=== PATIENT | male | born 2000 | race Caucasian/White ===

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

== ENCOUNTER 2018-02-25 11:14 | Emergency (ER) | payer OTHER ==
[2018-02-25] MEDS: BACLOFEN 10 MG TAB PO (12:15)
[2018-02-25] MEDS: NORCO, ANEXSIA 5/325MG TABLET (HYDROcodone/ACETAMINOPHEN) PO (12:15)
== END 2018-02-25 13:56 | disposition home or self-care (01) ==
LOC: M ED 11:14
DX: S39.002A Unspecified injury of muscle, fascia and tendon of lower back, initial encounter (principal); W11.XXXA Fall on and from ladder, initial encounter; Y92.59 Other trade areas as the place of occurrence of the external cause; Y99.0 Civilian activity done for income or pay; F41.9 Anxiety disorder, unspecified; F33.9 Major depressive disorder, recurrent, unspecified; R45.4 Irritability and anger; Z87.828 Personal history of other (healed) physical injury and trauma
CPT/HCPCS: 72072

== ENCOUNTER → 2018-05-24 | Outpatient (REF) | payer OTHER ==
[2018-05-24 14:59] LABS: BASO % 0.7 % (0.0-1.0); EOS # 0.4 10^3/uL (0.0-0.50); EOS % 7.2 % (0.0-3.0); HEMATOCRIT 41.5 % (42.0-52.0); HEMOGLOBIN 14.5 g/dl (13.5-17.5); IMMATURE GRANULOCYTE % 0.3 % (0-3.0); LYMPH % 33.5 % (24.0-44.0); MEAN CORPUSCULAR HEMOGLOBIN 30.8 pg (27.0-33.0); MEAN CORPUSCULAR HGB CONC 34.9 g/dl (32.0-36.5); MEAN CORPUSCULAR VOLUME 88.1 fl (80.0-96.0); MONO # 0.5 10^3/uL (0.0-0.8); MONO % 7.9 % (0.0-5.0); NEUTROPHILS % 50.4 % (36.0-66.0); PLATELET COUNT, AUTOMATED 305 10^3/uL (150-450); RED BLOOD COUNT 4.71 10^6/uL (4.30-6.10); RED CELL DISTRIBUTION WIDTH 13.1 % (11.5-14.5)
[2018-05-24 15:12] LABS: ALBUMIN 4.4 GM/DL (3.2-5.2); ALBUMIN/GLOBULIN RATIO 1.42 (1.00-1.93); ALKALINE PHOSPHATASE 108 U/L (45-117); ALT/SGPT 25 U/L (12-78); ANION GAP 7 MEQ/L (8-16); AST/SGOT 16 U/L (7-37); BILIRUBIN,TOTAL 1.4 MG/DL (0.2-1.0); BLOOD UREA NITROGEN 11 MG/DL (7-18); CALCIUM LEVEL 9.6 MG/DL (8.5-10.1); CARBON DIOXIDE LEVEL 27 MEQ/L (21-32); CHLORIDE LEVEL 109 MEQ/L (98-107); CREATININE FOR GFR 0.98 MG/DL (0.70-1.30); GLUCOSE, FASTING 90 MG/DL (70-100); POTASSIUM SERUM 4.4 MEQ/L (3.5-5.1); SODIUM LEVEL 143 MEQ/L (136-145); TOTAL PROTEIN 7.5 GM/DL (6.4-8.2)
[2018-05-24 15:13] LABS: TOTAL 25(OH) VITAMIN D 25.4 NG/ML (30.0-100.0)
== END ==
LOC: M LAB REF 14:23
DX: F43.10 Post-traumatic stress disorder, unspecified (principal)
CPT/HCPCS: 84443

== ENCOUNTER 2018-10-16 12:50 | Emergency (ER) | payer OTHER ==
[~2018-10-16] VITALS: Ht 182.9 cm; Wt 100.0 kg
[~2018-10-16 12:50] MED LIST changes: +ACET-683 PO; +BACL1TAB8 PO; -CLON1TAB PO; +CLON1TAB8 PO; +NORCOTAB PO; +TYLE325T5 PO; +ZOFR4TAB14 PO
[2018-10-16] MEDS ORDERED: MIRT15TA3 (12:55)
[2018-10-16] MEDS ORDERED: HYDR50TA70 (12:55)
[2018-10-16] MEDS ORDERED: DICYCLOMINE INJ 20MG/2ML (J0500) IM ONE (13:15)
[2018-10-16] MEDS ORDERED: NS 1,000 ML IV ONE (13:15)
[2018-10-16] MEDS ORDERED: ONDANSETRON 4MG/2ML VIAL (J2405) IV ONE (13:15)
[2018-10-16 13:47] LABS: BASO % 0.2 % (0.0-1.0); EOS # 0.1 10^3/uL (0.0-0.50); EOS % 0.5 % (0.0-3.0); HEMATOCRIT 44.1 % (42.0-52.0); HEMOGLOBIN 15.7 g/dl (13.5-17.5); LYMPH # 0.5 10^3/uL (1.5-6.5); LYMPH % 4.5 % (24.0-44.0); MEAN CORPUSCULAR HEMOGLOBIN 31.4 pg (27.0-33.0); MEAN CORPUSCULAR HGB CONC 35.6 g/dl (32.0-36.5); MEAN CORPUSCULAR VOLUME 88.2 fl (80.0-96.0); MONO # 0.4 10^3/uL (0.0-0.8); MONO % 3.1 % (0.0-5.0); NEUTROPHILS # 10.7 10^3/uL (1.8-7.7); NEUTROPHILS % 91.3 % (36.0-66.0); PLATELET COUNT, AUTOMATED 304 10^3/uL (150-450); WHITE BLOOD COUNT 11.8 10^3/uL (4.0-10.0)
[2018-10-16 14:26] LABS: ALBUMIN 4.3 GM/DL (3.2-5.2); ALT/SGPT 51 U/L (12-78); BILIRUBIN,DIRECT 0.3 MG/DL (0.0-0.2); BILIRUBIN,TOTAL 1.7 MG/DL (0.2-1.0); BLOOD UREA NITROGEN 13 MG/DL (7-18); CALCIUM LEVEL 8.3 MG/DL (8.5-10.1); CARBON DIOXIDE LEVEL 24 MEQ/L (21-32); CHLORIDE LEVEL 107 MEQ/L (98-107); CREATININE FOR GFR 1.06 MG/DL (0.70-1.30); GLUCOSE, FASTING 116 MG/DL (70-100); LIPASE 63 U/L (73-393); POTASSIUM SERUM 4.3 MEQ/L (3.5-5.1); SODIUM LEVEL 138 MEQ/L (136-145); TOTAL PROTEIN 8.1 GM/DL (6.4-8.2)
[2018-10-16] MEDS ORDERED: ONDA4TAB6 PO (16:06)
[2018-10-16 16:30] VITALS: BP 118/72
[2018-10-17] MEDS ORDERED: SUCR1SS PO (09:18)
[2018-10-17] MEDS ORDERED: OMEP40CA2 PO (09:19)
== END 2018-10-16 16:32 | disposition home or self-care (01) ==
LOC: M ED 12:50
DX: K52.9 Noninfective gastroenteritis and colitis, unspecified (principal)
CPT/HCPCS: 80048; 80076; 83690; 85025; 96361; 96372; 96374; 99284; J0500; J2405

== ENCOUNTER 2018-10-17 07:36 | Emergency (ER) | payer OTHER ==
[~2018-10-17] VITALS: Ht 182.9 cm; Wt 103.9 kg
[~2018-10-17 07:36] MED LIST changes: +HYDR50TA70; +MIRT15TA3; +ONDA4TAB6 PO
[2018-10-17 08:07] LABS: BASO % 0.2 % (0.0-1.0); EOS % 0.2 % (0.0-3.0); HEMATOCRIT 42.8 % (42.0-52.0); HEMOGLOBIN 15.2 g/dl (13.5-17.5); LYMPH # 1.7 10^3/uL (1.5-6.5); LYMPH % 16.2 % (24.0-44.0); MEAN CORPUSCULAR HEMOGLOBIN 31.5 pg (27.0-33.0); MEAN CORPUSCULAR HGB CONC 35.5 g/dl (32.0-36.5); MEAN CORPUSCULAR VOLUME 88.8 fl (80.0-96.0); MONO % 9.8 % (0.0-5.0); NEUTROPHILS # 7.7 10^3/uL (1.8-7.7); NEUTROPHILS % 73.2 % (36.0-66.0); PLATELET COUNT, AUTOMATED 274 10^3/uL (150-450); RED BLOOD COUNT 4.82 10^6/uL (4.30-6.10); WHITE BLOOD COUNT 10.5 10^3/uL (4.0-10.0)
[2018-10-17] MEDS ORDERED: GI COCKTAIL 50ML BTL(HYOSCYAMINE/MAALOX/LIDOCAINE VISCOUS)(1:3:1) PO ONE (08:15)
[2018-10-17] MEDS ORDERED: KETOROLAC 30 MG/ML VIAL (J1885) IV ONE (08:15)
[2018-10-17 08:43] LABS: BLOOD UREA NITROGEN 9 MG/DL (7-18); CALCIUM LEVEL 8.7 MG/DL (8.5-10.1); CARBON DIOXIDE LEVEL 24 MEQ/L (21-32); CHLORIDE LEVEL 105 MEQ/L (98-107); CK-MB VALUE MASS < 1.0 NG/ML (<3.6); CPK CREATINE PHOSPHOKINASE 57 U/L (39-308); FREE T4 0.96 NG/DL (0.78-1.33); GLUCOSE, FASTING 110 MG/DL (70-100); MB/CK RELATIVE INDEX 1.75 (< OR =4); POTASSIUM SERUM 3.7 MEQ/L (3.5-5.1); SODIUM LEVEL 137 MEQ/L (136-145); TROPONIN I < 0.02 NG/ML (< 0.10)
[2018-10-17 08:45] VITALS: BP 145/74
--- NOTE | 2018-10-17 08:47 | REP ---
PORTABLE CHEST, SINGLE VIEW: There is no evidence of acute infiltrate. No pleural effusion is seen. The heart is normal in size. The mediastinal silhouette is unremarkable. The visualized osseous structures are intact. IMPRESSION: No acute pulmonary disease. Electronically Signed by Wilner Zurita MD 10/17/2018 04:57 P
[2018-10-17 09:07] LABS: ERYTHROCYTE SEDIMENTATION RATE 5 mm/hr (0-15)
[2018-10-17] MEDS ORDERED: SUCR1SS PO (09:18)
[2018-10-17] MEDS ORDERED: OMEP40CA2 PO (09:19)
--- NOTE | 2018-10-18 06:46 | ECGEPIP ---
Stationary ECG Study [facility] - ED Test Date: 2018-10-17 Pat Name: SYMONE GARCIA Department: Room: - Gender: M Metal Stamping Machine Operator: : 2000 Requested By: Mayelin Valdez Order Number: [id number] Reading MD: Chris Jarrett Measurements Intervals [place] Rate: 93 P: 59 MI: 124 QRS: 7 QRSD: 107 T: 27 QT: 340 QTc: 423 Interpretive Statements SINUS RHYTHM MODERATE INTRAVENTRICULAR CONDUCTION DELAY BENIGN EARLY REPOLARIZATION SIMILAR TO 06/25/17 Electronically Signed On 10-18-2018 6:46:06 EST by Chris Jarrett
== END 2018-10-17 09:34 | disposition home or self-care (01) ==
LOC: EDBD 07:36 → M ED 07:36
DX: K21.9 Gastro-esophageal reflux disease without esophagitis (principal); F32.9 Major depressive disorder, single episode, unspecified; F41.9 Anxiety disorder, unspecified; F90.9 Attention-deficit hyperactivity disorder, unspecified type; R55 Syncope and collapse; G47.00 Insomnia, unspecified; R03.0 Elevated blood-pressure reading, without diagnosis of hypertension; F17.200 Nicotine dependence, unspecified, uncomplicated; Z79.899 Other long term (current) drug therapy
CPT/HCPCS: 71045; 80048; 82550; 82553; 84439; 84484; 85025; 85379; 85652; 93005; 93041; 94760; 96374; 99285; J1885

== ENCOUNTER → 2019-11-18 | Outpatient (CLI) | payer OTHER, SELFPAY ==
[~2019-11-18] MED LIST changes: +CYCL-707 PO; +HYDR-3715 PO; +LISI-538; -NORCOTAB PO; +OMEP40CA97 PO; +SUCR1SS PO; +ZOFR4TAB16 PO
== END ==
LOC: M LABSMTC 13:05
PROVIDERS: ATTEND Family Medicine
DX: Z11.59 Encounter for screening for other viral diseases (principal); Z03.818 Encounter for observation for suspected exposure to other biological agents ruled out

== ENCOUNTER → 2019-12-03 | Outpatient (REF) | payer SELFPAY ==
[~2019-12-03] MED LIST changes: -CYCL-707 PO; -LISI-538; -ZOFR4TAB16 PO
[2019-12-03 20:47] LABS: CHLAMYDIA DNA AMPLIFICATION NEGATIVE (NEGATIVE); GC DNA AMPLIFICATION NEGATIVE (NEGATIVE)
== END ==
LOC: M LAB REF 18:19
PROVIDERS: ATTEND Nurse Practitioner Family
DX: Z11.3 Encounter for screening for infections with a predominantly sexual mode of transmission (principal)

== ENCOUNTER 2020-01-10 08:13 | Emergency (ER) | payer SELFPAY ==
[~2020-01-10] VITALS: Ht 182.9 cm; Wt 118.2 kg
[2020-01-10] MEDS ORDERED: LISI-538 (08:20)
[2020-01-10] MEDS ORDERED: NS 1,000 ML IV ONE (08:30)
[2020-01-10] MEDS ORDERED: MORPHINE 4 MG/ML 1ML VIAL/SYRINGE (J2270) IV PRN (08:30)
[2020-01-10] MEDS ORDERED: ISOVUE-370 76% 100ML VIAL As Ordered ONE (08:38)
[2020-01-10 08:48] LABS: BASO # 0.1 10^3/uL (0.0-0.2); BASO % 0.6 % (0.0-1.0); EOS % 10.3 % (0.0-3.0); HEMOGLOBIN 15.5 g/dl (13.5-17.5); LYMPH # 3.5 10^3/uL (1.5-5.0); MEAN CORPUSCULAR HEMOGLOBIN 31.1 pg (27.0-33.0); MEAN CORPUSCULAR HGB CONC 34.4 g/dl (32.0-36.5); MEAN CORPUSCULAR VOLUME 90.4 fl (80.0-96.0); MONO # 0.9 10^3/uL (0.0-0.8); MONO % 9.4 % (0.0-5.0); NEUTROPHILS # 4.4 10^3/uL (1.5-8.5); NEUTROPHILS % 44.2 % (36.0-66.0); PLATELET COUNT, AUTOMATED 372 10^3/uL (150-450); RED BLOOD COUNT 4.98 10^6/uL (4.30-6.10); WHITE BLOOD COUNT 9.9 10^3/uL (4.0-10.0)
[2020-01-10 09:21] LABS: INR 1.03; PROTHROMBIN TIME 13.2 SECONDS (11.8-14.0)
[2020-01-10 09:22] LABS: PARTIAL THROMBOPLASTIN TIME 31.3 SECONDS (25.0-38.4)
[2020-01-10 09:39] LABS: ALBUMIN 4.1 GM/DL (3.2-5.2); BILIRUBIN,DIRECT 0.2 MG/DL (0.0-0.2); BILIRUBIN,TOTAL 0.9 MG/DL (0.2-1.0); TOTAL PROTEIN 7.8 GM/DL (6.4-8.2)
[2020-01-10] MEDS ORDERED: IBUPROFEN 600MG TAB PO ONE (11:00)
[2020-01-10 11:15] VITALS: BP 130/78
[2020-01-10] MEDS ORDERED: ZOFR4TAB16 PO (11:21)
[2020-01-10] MEDS ORDERED: CYCL-707 PO (11:22)
--- NOTE | 2020-01-10 13:40 | REP ---
CT BRAIN WITHOUT IV CONTRAST: CT brain performed without IV contrast. Coronal reconstruction images are performed. The ventricles are normal in size and position. There is no midline shift or mass effect. Zurita-white differentiation is well maintained. There is no acute intracranial hemorrhage or extra-axial fluid collection. No skull fracture is seen. Visualized mastoid air cells and paranasal sinuses are clear. IMPRESSION: Negative noncontrast CT brain. Electronically Signed by Wilner Zurita MD 01/10/2020 09:42 P
--- NOTE | 2020-01-10 13:42 | REP ---
CT CERVICAL SPINE: CT cervical spine performed in the axial plane with sagittal and coronal reconstruction images. There is no compression fracture or malalignment with normal cervical lordosis. There is no prevertebral soft tissue swelling. Disc spaces are well preserved. Spinal canal demonstrates no abnormal density. There is no gross disc herniation. Multiple subcentimeter lymph nodes are seen in the soft tissues of the neck. IMPRESSION: No evidence of fracture or dislocation. Electronically Signed by Wilner Zurita MD 01/10/2020 09:42 P
--- NOTE | 2020-01-10 13:44 | REP ---
CT THORACIC SPINE: CT thoracic spine performed in the axial plane. Sagittal and coronal reconstruction images are performed. There is no compression fracture or malalignment. There is normal thoracic kyphosis. Disc spaces are well preserved. No abnormal density is seen in the spinal canal. IMPRESSION: No evidence of fracture or dislocation. Electronically Signed by Wilner Zurita MD 01/10/2020 09:42 P
--- NOTE | 2020-01-10 13:45 | REP ---
CT LUMBAR SPINE: CT lumbar spine performed. Sagittal and coronal reconstruction images are performed. There is no compression fracture or malalignment. There is normal lumbar lordosis. Disc spaces are well preserved. No abnormal density is seen in the spinal canal. IMPRESSION: No fracture or dislocation. Electronically Signed by Wilner Zurita MD 01/10/2020 09:42 P
--- NOTE | 2020-01-10 13:47 | REP ---
CT CHEST WITH IV CONTRAST: TECHNIQUE: Axial contrast-enhanced images from the thoracic inlet to the upper abdomen using 100 mL Isovue-370 intravenous contrast material with multiplanar reformations. Lungs are free of infiltrate. There is no pneumothorax. There is no pleural or pericardial effusion. Heart is normal in size. Thoracic aorta is intact with no aneurysm or dissection. There is no mediastinal, hilar, or chest wall lymphadenopathy. The visualized osseous structures are intact. IMPRESSION: No abnormalities detected. Electronically Signed by Wilner Zurita MD 01/10/2020 09:42 P
--- NOTE | 2020-01-10 13:52 | REP ---
CT ABDOMEN AND PELVIS WITH IV CONTRAST: TECHNIQUE: Axial contrast-enhanced images from the lung bases to the pubic symphysis using 100 mL Isovue-370 intravenous contrast material with multiplanar reformations. The liver, spleen, adrenals, pancreas, and kidneys are unremarkable in appearance with no traumatic abnormalities. There may be a tiny gallstone in the gallbladder. There is no evidence of biliary dilatation. The abdominal aorta is normal in caliber with no aneurysm. There are slightly prominent lymph nodes in the mesentery of the right lower quadrant, but this does not appear to be pathologic. The appendix is normal. No free air or free fluid is seen. No bowel wall thickening is seen. No pelvic abnormality is seen. Urinary bladder is mildly distended and grossly unremarkable. Visualized osseous structures appear intact. IMPRESSION: No acute abnormalities detected, as discussed above. There may be a tiny gallstone in the gallbladder. Electronically Signed by Wilner Zurita MD 01/10/2020 09:43 P
== END 2020-01-10 11:34 | disposition home or self-care (01) ==
LOC: M ED 08:13
DX: S16.1XXA Strain of muscle, fascia and tendon at neck level, initial encounter (principal); S20.229A Contusion of unspecified back wall of thorax, initial encounter; W11.XXXA Fall on and from ladder, initial encounter; Y92.89 Other specified places as the place of occurrence of the external cause; Z79.899 Other long term (current) drug therapy
CPT/HCPCS: 70450; 71260; 72125; 72128; 72131; 74177; 80047; 80076; 85025; 85610; 85730; 93041; 94760; 96361; 96374; 99285; J2270; Q9967

== ENCOUNTER 2021-01-01 15:57 | Emergency (ER) | payer OTHER, MEDICAID ==
[~2021-01-01] VITALS: Ht 182.9 cm; Wt 125.7 kg
[~2021-01-01 15:57] MED LIST changes: +CYCL-707 PO; +LISI20TA33; +ZOFR4TAB16 PO
[2021-01-01] MEDS ORDERED: KETOROLAC 30 MG/ML 1ML VIAL IV ONE (16:20)
[2021-01-01] MEDS ORDERED: NS 1,000 ML IV ONE (16:20)
[2021-01-01 16:46] LABS: BASO % 0.2 % (0.0-1.0); HEMOGLOBIN 14.5 g/dl (13.5-17.5); LYMPH # 0.9 10^3/uL (1.5-5.0); LYMPH % 3.5 % (24.0-44.0); MEAN CORPUSCULAR HEMOGLOBIN 30.5 pg (27.0-33.0); MEAN CORPUSCULAR HGB CONC 34.5 g/dl (32.0-36.5); MEAN CORPUSCULAR VOLUME 88.4 fl (80.0-96.0); MONO # 2.3 10^3/uL (0.0-0.8); MONO % 9.1 % (2.0-8.0); NEUTROPHILS % 85.9 % (36.0-66.0); PLATELET COUNT, AUTOMATED 258 10^3/uL (150-450); RED BLOOD COUNT 4.75 10^6/uL (4.30-6.10); WHITE BLOOD COUNT 25.6 10^3/uL (4.0-10.0)
[2021-01-01] MEDS ORDERED: ISOVUE-370 76% 100ML VIAL As Ordered ONE (16:48)
[2021-01-01 17:08] LABS: ALBUMIN 3.7 GM/DL (3.2-5.2); BILIRUBIN,DIRECT 1.2 MG/DL (0.0-0.2); BILIRUBIN,TOTAL 3.7 MG/DL (0.2-1.0); TOTAL PROTEIN 7.9 GM/DL (6.4-8.2)
--- NOTE | 2021-01-01 17:22 | REP ---
INDICATION: right sided abd pain. COMPARISON: Comparison CT study of the chest 10 Jan 2020.. TECHNIQUE: Helical scanning was acquired and 4 mm axial images are re-formatted. Coronal and sagittal MPR images were generated and reviewed. The contrast enhancement dose is 100 mL of intravenous Isovue 370. Delayed phase postcontrast imaging through the upper abdomen is acquired as well. FINDINGS: Preliminary digital activities director scouting radiograph is unremarkable. The lung bases are clear on axial CT images. The spleen is mildly enlarged measuring 14.2 cm in greatest dimension but homogeneous in texture. There is a small accessory splenule. The liver is not felt to be enlarged. There is a new irregularly marginated mass in the right lobe of the liver posteriorly adjacent to the intrahepatic vena cava. This measures 5.2 cm right to left by 5.9 cm cranial to caudal by 8.6 cm anterior to posterior. This was not present on the [address] study. It does not appear to be encapsulated in there is no evidence to suggest a central scar. On delayed post-contrast sequence there appears to be some mild internal delayed contrast enhancement. No other focal liver lesion is seen. Gallbladder is unremarkable. No pancreatic abnormality is seen. There is no evidence of upper abdominal mass or adenopathy. Normal adrenal glands are seen. No renal mass is seen. Kidneys enhance symmetrically and are morphologically intact. There is a normal appendix in the right lower quadrant. There are several right lower quadrant small bowel mesenteric lymph nodes, the largest of which measures 8 mm in short axis dimension. These are not felt to be enlarged. Small and large bowel loops are unremarkable in the abdomen and pelvis. No pelvic mass or adenopathy is seen. Prostate, seminal vesicles and urinary bladder are unremarkable. IMPRESSION: 1. Mild splenomegaly. 2. There is a new heterogeneous low-density poorly enhancing mass in the right lobe of the liver measuring 8.6 cm in greatest diameter, not present 1 year ago, January 10, 2020. Primary versus secondary malignancy, less likely abscess with the right clinical scenario. Characterization with sonography suggested. Sonography may be helpful for image guided biopsy and/or aspiration. <Electronically signed by Sulaiman Albarado > 01/01/21 2150
[2021-01-01 18:22] LABS: MONO SCRN NEGATIVE (NEGATIVE)
[2021-01-01 19:03] LABS: AMPHETAMINES LEVEL URINE NEGATIVE (NEGATIVE); BARBITURATES URINE NEGATIVE (NEGATIVE); BENZODIAZEPINES URINE NEGATIVE (NEGATIVE); CANNABINOIDS URINE NEGATIVE (NEGATIVE); COCAINE METABOLITE URINE NEGATIVE (NEGATIVE); METHADONE URINE NEGATIVE (NEGATIVE); OPIATES URINE NEGATIVE (NEGATIVE); PHENCYCLIDINE URINE NEGATIVE (NEGATIVE)
--- NOTE | 2021-01-01 19:20 | REP ---
INDICATION: mass on ct. COMPARISON: Comparison is made with today's CT study.. TECHNIQUE: Right upper quadrant sonography. Doppler interrogation. FINDINGS: Scanning through the right upper quadrant the abdomen demonstrates a normal sized and walled gallbladder without evidence of stone or polyp. Common bile duct is normal measuring 0.5 cm in greatest diameter. Limited views of pancreas show no abnormality. There is no evidence of ascites. No right renal abnormality is seen. The right kidney measures 12.7 x 5.9 x 6.3 cm. The mass seen on CT study is hypoechoic with irregular margins and somewhat heterogeneous echotexture. Its dimensions by ultrasound 9.6 x 5.7 x 9.5 cm. It is posterolateral to the intrahepatic segment of the IVC as seen on CT. There is no enhanced through transmission. Some predominantly peripheral low resistance doppler flow is observed. No other mass lesion is observed. There is no evidence of biliary ductal dilation. IMPRESSION: Heterogeneous irregularly marginated slightly hypoechoic 9.6 x 9.5 x 5.7 cm soft tissue mass in the liver. Findings not suggestive of abscess. Differential as per CT. Consider ultrasound-guided needle biopsy for tissue sampling.. <Electronically signed by Sulaiman Albarado > 01/01/211915
[2021-01-01 19:49] LABS: RSV AMPLIFICATION NEGATIVE (NEGATIVE)
[2021-01-01] MEDS ORDERED: ACETAMINOPHEN 325 MG TAB PO ONE (19:55)
[2021-01-01] MEDS ORDERED: AMPICILLIN SOD/SULBACTAM SOD 3 GM in D5W MINI-BAG PLUS 100 ML IV ONE (19:55)
[2021-01-01 22:13] VITALS: BP 127/58
[2021-01-03 12:31] LABS: HEPATITIS A ANTIBODY IGM NEGATIVE (NEGATIVE); HEPATITIS B CORE ANTIBODY IGM NEGATIVE (NEGATIVE); HEPATITIS B SURFACE ANTIGEN NEGATIVE (NEGATIVE)
== END 2021-01-01 22:15 | disposition short-term general hospital (02) ==
LOC: M ED 15:57
DX: R93.2 Abnormal findings on diagnostic imaging of liver and biliary tract (principal); D72.829 Elevated white blood cell count, unspecified; R79.89 Other specified abnormal findings of blood chemistry; E66.9 Obesity, unspecified; I10 Essential (primary) hypertension; R50.9 Fever, unspecified; R55 Syncope and collapse; F41.9 Anxiety disorder, unspecified; F32.9 Major depressive disorder, single episode, unspecified
CPT/HCPCS: 74177; 76705; 80047; 80076; 80307; 81001; 83605; 83690; 85025; 86308; 86705; 86709; 86803; 87040; 87340; 87631; 96361; 96365; 96366; 96375; 99284; J1885; Q9967

== ENCOUNTER 2021-01-17 15:54 | Outpatient (CLI) | payer MEDICAID ==
[~2021-01-17] VITALS: Ht 182.9 cm; Wt 125.7 kg
[2021-01-17 16:10] VITALS: BP 128/70
[2021-01-17 17:13] LABS: BASO # 0.1 10^3/uL (0.0-0.2); BASO % 1.3 % (0.0-1.0); EOS # 0.3 10^3/uL (0.0-0.5); EOS % 3.6 % (0.0-3.0); HEMATOCRIT 38.7 % (42.0-52.0); HEMOGLOBIN 12.9 g/dl (13.5-17.5); LYMPH % 26.5 % (24.0-44.0); MEAN CORPUSCULAR HEMOGLOBIN 30.1 pg (27.0-33.0); MEAN CORPUSCULAR HGB CONC 33.3 g/dl (32.0-36.5); MEAN CORPUSCULAR VOLUME 90.4 fl (80.0-96.0); MONO # 0.6 10^3/uL (0.0-0.8); MONO % 7.2 % (2.0-8.0); NEUTROPHILS # 4.6 10^3/uL (1.5-8.5); NEUTROPHILS % 61.1 % (36.0-66.0); PLATELET COUNT, AUTOMATED 616 10^3/uL (150-450); RED BLOOD COUNT 4.28 10^6/uL (4.30-6.10); WHITE BLOOD COUNT 7.6 10^3/uL (4.0-10.0)
[2021-01-17 17:53] LABS: ALBUMIN 3.7 GM/DL (3.2-5.2); ALT/SGPT 66 U/L (12-78); BILIRUBIN,TOTAL 0.9 MG/DL (0.2-1.0); BLOOD UREA NITROGEN 9 MG/DL (7-18); C REACTIVE PROTEIN QUANTITATIV 1.99 MG/DL (0.00-0.30); CALCIUM LEVEL 9.9 MG/DL (8.5-10.1); CARBON DIOXIDE LEVEL 26 MEQ/L (21-32); CHLORIDE LEVEL 105 MEQ/L (98-107); CREATININE FOR GFR 0.94 MG/DL (0.70-1.30); GLOMERULAR FILTRATION RATE > 60.0 (>60); GLUCOSE, FASTING 82 MG/DL (70-100); POTASSIUM SERUM 4.7 MEQ/L (3.5-5.1); SODIUM LEVEL 139 MEQ/L (136-145)
[2021-01-17 18:10] LABS: ERYTHROCYTE SEDIMENTATION RATE 39 mm/hr (0-15)
== END 2021-01-17 16:28 | disposition home or self-care (01) ==
LOC: M INFU 15:54
PROVIDERS: ATTEND Internal Medicine Infectious Disease
DX: B67 Echinococcosis (principal); Z79.2 Long term (current) use of antibiotics

== ENCOUNTER 2021-01-30 03:12 | Emergency (ER) | payer MEDICAID ==
[~2021-01-30] VITALS: Ht 182.9 cm; Wt 121.1 kg
[~2021-01-30 03:12] MED LIST changes: +OMEP40CA4 PO; -OMEP40CA97 PO
[2021-01-30 05:44] VITALS: BP 119/79
== END 2021-01-30 08:08 | disposition left against medical advice (07) ==
LOC: M ED 03:12
DX: Z53.21 Procedure and treatment not carried out due to patient leaving prior to being seen by health care provider (principal)

== ENCOUNTER 2021-01-31 14:27 | Emergency (ER) | payer MEDICAID ==
[~2021-01-31] VITALS: Ht 182.9 cm; Wt 118.2 kg
[2021-01-31 15:23] LABS: BASO # 0.1 10^3/uL (0.0-0.2); BASO % 0.9 % (0.0-1.0); EOS # 1.1 10^3/uL (0.0-0.5); EOS % 12.6 % (0.0-3.0); HEMATOCRIT 40.4 % (42.0-52.0); HEMOGLOBIN 13.6 g/dl (13.5-17.5); LYMPH # 2.3 10^3/uL (1.5-5.0); LYMPH % 26.3 % (24.0-44.0); MEAN CORPUSCULAR HEMOGLOBIN 30.4 pg (27.0-33.0); MEAN CORPUSCULAR HGB CONC 33.7 g/dl (32.0-36.5); MEAN CORPUSCULAR VOLUME 90.2 fl (80.0-96.0); MONO # 0.6 10^3/uL (0.0-0.8); MONO % 6.4 % (2.0-8.0); NEUTROPHILS # 4.7 10^3/uL (1.5-8.5); NEUTROPHILS % 53.3 % (36.0-66.0); PLATELET COUNT, AUTOMATED 355 10^3/uL (150-450); RED BLOOD COUNT 4.48 10^6/uL (4.30-6.10); WHITE BLOOD COUNT 8.7 10^3/uL (4.0-10.0)
[2021-01-31 15:52] LABS: ALBUMIN 3.9 GM/DL (3.2-5.2); ALT/SGPT 43 U/L (12-78); AMYLASE 46 U/L (25-115); BILIRUBIN,DIRECT 0.2 MG/DL (0.0-0.2); BILIRUBIN,TOTAL 0.6 MG/DL (0.2-1.0); BLOOD UREA NITROGEN 14 MG/DL (7-18); C REACTIVE PROTEIN QUANTITATIV 0.44 MG/DL (0.00-0.30); CALCIUM LEVEL 9.7 MG/DL (8.5-10.1); CARBON DIOXIDE LEVEL 26 MEQ/L (21-32); CHLORIDE LEVEL 108 MEQ/L (98-107); GLOMERULAR FILTRATION RATE > 60.0 (>60); GLUCOSE, FASTING 86 MG/DL (70-100); POTASSIUM SERUM 4.2 MEQ/L (3.5-5.1); SODIUM LEVEL 140 MEQ/L (136-145); TOTAL PROTEIN 7.6 GM/DL (6.4-8.2)
[2021-01-31 17:50] VITALS: BP 160/85
== END 2021-01-31 18:15 | disposition home or self-care (01) ==
LOC: M ED 14:27
DX: Z48.01 Encounter for change or removal of surgical wound dressing (principal); I10 Essential (primary) hypertension; Z87.19 Personal history of other diseases of the digestive system; R55 Syncope and collapse; Z87.820 Personal history of traumatic brain injury; F41.9 Anxiety disorder, unspecified; F32.9 Major depressive disorder, single episode, unspecified; R45.4 Irritability and anger; Z95.818 Presence of other cardiac implants and grafts

== ENCOUNTER 2022-02-06 23:23 | Emergency (ER) | payer MEDICAID ==
[~2022-02-06] VITALS: Ht 182.9 cm; Wt 112.9 kg
[2022-02-07 01:12] LABS: GC DNA AMPLIFICATION POSITIVE (NEGATIVE)
[2022-02-07] MEDS ORDERED: cefTRIAXone 500MG VIAL (J0696 PER 250MG) IM ONE (05:45)
[2022-02-07] MEDS ORDERED: LIDOCAINE 1% SDV 5ML VIAL DILUENT ONE (05:45)
[2022-02-07 06:09] VITALS: BP 136/74
== END 2022-02-07 06:11 | disposition home or self-care (01) ==
LOC: M ED 23:23
DX: A54.9 Gonococcal infection, unspecified (principal)
CPT/HCPCS: 81001; 87086; 87661; 87810; 87850; 96372; 99283; J0696

== ENCOUNTER 2023-06-07 16:59 | Emergency (ER) | payer MEDICAID, OTHER ==
[~2023-06-07] VITALS: Ht 182.9 cm; Wt 114.8 kg
[2023-06-07 16:59] VITALS: BP 147/89; TEMP 98.2; O2SAT 99
== END 2023-06-07 20:29 | disposition home or self-care (01) ==
LOC: M ED 16:59
DX: S30.0XXA Contusion of lower back and pelvis, initial encounter (principal)

== ENCOUNTER 2023-09-29 20:36 | Emergency (ER) | payer OTHER, SELFPAY ==
[~2023-09-29] VITALS: Ht 182.9 cm; Wt 118.6 kg
[2023-09-29 22:31] VITALS: BP 157/87; TEMP 98.6; O2SAT 97
== END 2023-09-29 23:33 | disposition left against medical advice (07) ==
LOC: M ED 20:36
DX: Z53.21 Procedure and treatment not carried out due to patient leaving prior to being seen by health care provider (principal)

== ENCOUNTER 2025-05-18 00:56 | Emergency (ER) | payer OTHER, SELFPAY ==
[~2025-05-18] VITALS: Ht 182.9 cm; Wt 113.6 kg
[~2025-05-18 00:56] MED LIST changes: +ONDA-282 PO; -ONDA4TAB6 PO
[2025-05-18] MEDS: KETOROLAC 60 MG/2 ML VIAL IM ONE (03:54)
[2025-05-18 03:58] VITALS: BP 129/79; TEMP 96.6; O2SAT 99
== END 2025-05-18 04:01 | disposition home or self-care (01) ==
LOC: M ED 00:56
DX: M54.50 Low back pain, unspecified (principal); I10 Essential (primary) hypertension; F41.9 Anxiety disorder, unspecified; F32.A Depression, unspecified
CPT/HCPCS: 96372; 99283; J1885